=== PATIENT | female | born 1960 | race Caucasian/White ===

== ENCOUNTER 2016-04-26 18:50 | Emergency (ER) | payer OTHER ==
[~2016-04-26] VITALS: Ht 152.4 cm; Wt 77.2 kg
[~2016-04-26 18:50] MED LIST: MTF1000T PO; PANT40TA3 PO; ZOC20 PO
[2016-04-26 19:11] VITALS: Ht 152.4 cm; Wt 77.2 kg
[2016-04-26] MEDS ORDERED: SOD CHLORIDE 0.9% 1,000 ML IV STA ×2 (19:43→21:01)
[2016-04-26] MEDS ORDERED: MECLIZINE 12.5 MG TAB PO ONE (20:00)
--- NOTE | 2016-04-26 20:07 | RADRPT ---
PROCEDURE: CT Head without contrast. CLINICAL INDICATION: weakness, dizxiness TECHNIQUE: Continuous axial CT images were obtained from the base of skull to the vertex. No cont rast was administered. The calculated radiation dose measures 0818 mGy centimeters. The CTDI measure s 50 mGy COMPARISON: No prior studies are available for comparison. FINDINGS: The ventricles are symmetric and normal in size. There is no mass effect or midline shift. There i s no abnormal intra-axial or extra-axial fluid collection. There is no evidence of intracranial hem orrhage. There are no abnormal areas of increased or decreased attenuation in the brain parenchyma. The bony calvarium is intact. The orbital soft tissue contents are unremarkable. Paranasal sinuses appear clear IMPRESSION: No mass effect or acute intracranial bleed. Unremarkable CT brain. RPTAT: HBST .Jian Islas MD, MD Date Time Electronically viewed and signed by .Jian Islas MD, MD on 04/26/2016 20:06 .T/
[2016-04-26 20:18] LABS: BASOPHILS % 0.4 % (0.0-2.0); EOSINOPHILS # 0.2 10^3/ul (0.0-0.5); EOSINOPHILS % 2.5 % (0.0-7.0); HEMATOCRIT 41.4 % (37.0-47.0); HEMOGLOBIN 14.4 g/dl (12.0-16.0); LYMPHOCYTES # 2.9 10^3/ul (0.8-2.9); LYMPHOCYTES % 38.6 % (15.0-51.0); MEAN CORPUSCULAR HEMOGLOBIN 33.1 pg (29.0-33.0); MEAN CORPUSCULAR HGB CONC 34.8 g/dl (32.0-37.0); MEAN CORPUSCULAR VOLUME 95.3 fl (82.0-101.0); MEAN PLATELET VOLUME 8.5 fl (7.4-10.4); MONOCYTE # 0.4 10^3/ul (0.3-0.9); MONOCYTES % 5.7 % (0.0-11.0); NEUTROPHILS % 52.8 % (39.0-77.0); PLATELET COUNT 248 10^3/UL (140-440); RED BLOOD COUNT 4.35 10^6/ul (4.20-5.40); RED CELL DISTRIBUTION WIDTH 12.5 % (11.5-14.5); UNCORRECTED WBC 7.6 10^3/ul (4.8-10.8); WHITE BLOOD COUNT 7.6 10^3/ul (4.8-10.8)
[2016-04-26 20:23] LABS: CHLORIDE 101 mmol/L (97-110); CONDITION 1; POTASSIUM 4.1 mmol/L (3.5-5.1); SODIUM 140 mmol/L (135-144)
[2016-04-26 20:26] LABS: ANION GAP 16 (8-16); BLOOD UREA NITROGEN 13 mg/dl (7-20); CARBON DIOXIDE 27 mmol/L (21-31)
[2016-04-26 20:27] LABS: CALCIUM 9.4 mg/dl (8.4-10.2)
[2016-04-26 20:31] LABS: GLUCOSE 411 mg/dl (70-220)
[2016-04-26 20:32] LABS: INR 0.91; PROTIME 12.2 Sec (12.2-14.2)
[2016-04-26 20:33] LABS: PARTIAL THROMBOPLASTIN TIME 26.2 Sec (25.0-35.0)
--- NOTE | 2016-04-26 20:54 | RADRPT ---
PROCEDURE: XR Chest. CLINICAL INDICATION: Chest pain TECHNIQUE: PA and Lateral views of the chest were obtained. COMPARISON: 05/20/2015 FINDINGS: The cardiomediastinal silhouette is within normal limits of size . Chronic elevation right hemidiaph ragm. .The lungs are clear without pleural effusion or focal consolidation. No pneumothorax. The os seous structures and soft tissues are unremarkable. IMPRESSION: 1. No evidence for active cardiopulmonary disease. RPTAT:AAJJ Jacqui Mendez Physician Date Time Electronically viewed and signed by Physician Arthur on 04/26/2016 20:53 VÍCTOR/
[2016-04-26] MEDS ORDERED: ASPI-664 PO (20:56)
[2016-04-26] MEDS ORDERED: LORA0.5T PO (20:57)
[2016-04-26 21:05] LABS: TROPONIN-I < 0.012 ng/ml (0.00-0.12)
[2016-04-26 21:14] LABS: ALBUMIN 4.5 g/dl (3.3-4.9)
[2016-04-26 21:16] LABS: BILIRUBIN,INDIRECT 0.1 mg/dl (0-1.1); BILIRUBIN,TOTAL 0.1 mg/dl (0.2-1.3)
[2016-04-26 21:17] LABS: TOTAL PROTEIN 7.3 g/dl (6.1-8.1)
[2016-04-26] MEDS ORDERED: GLUCOSE GEL 15 GRAM TUBE BUCCAL PRN (21:30)
[2016-04-26] MEDS ORDERED: DEXTROSE 50% 50 ML SYRINGE IV PRN ×2 (21:30)
[2016-04-26] MEDS ORDERED: INSULIN REGULAR, HUMAN 100 UNIT/1 ML 3ML VIAL SC ONE (21:30)
[2016-04-26] MEDS ORDERED: GLUCAGON 1 MG INJ IM PRN (21:30)
[2016-04-26] MEDS ORDERED: GLUCOSE GEL 15 GRAM TUBE PO PRN ×2 (21:30)
--- NOTE | 2016-04-26 22:21 | ERD ---
ER Documentation Chief Complaint Date/Time DATE: 04/26/16 TIME: 22:18 Chief Complaint Dizziness, Came to ER for eval. With Co morbidity HPI This 55-year-old female presents to the emergency room for evaluation of dizziness. The patient states that she was seen by her primary care physician and was diagnosed with anemia. She was concerned because her hemoglobin was less than 10 she states. She denies any vomiting, or bleeding when going to the restroom. She states that she is feeling dizzy and describes her dizziness as a lightheaded sensation. She does say she is a diabetic who is on metformin , glyburide. The patient came to the ER today for evaluation of her symptoms. ROS All systems reviewed and are negative except as per history of present illness. Medications Home Meds Reported Medications Lorazepam* (Lorazepam*) 0.5 Mg Tablet, 0.5 MG PO HS Y for ANXIETY, TAB 04/26/16 Aspirin* (Aspirin* EC) 81 Mg Tablet., 81 MG PO DAILY, TAB 04/26/16 Simvastatin (Simvastatin) 20 Mg Tablet, 20 MG PO QHS, #30 TAB 05/06/15 Metformin* (Glucophage*) 1,000 Mg Tablet, 1000 MG PO BID, #60 TAB 05/06/15 Discontinued Scripts Pantoprazole* (Protonix*) 40 Mg Tablet., 40 MG PO BID for 30 Days, TAB Prov:LYSSA MCKINLEY MD 05/10/15 Allergies Allergies: Coded Allergies: No Known Drug Allergies (Verified Allergy, Unknown, 04/26/16) PMhx/Soc History of Surgery: No Anesthesia Reaction: No Hx Neurological Disorder: No Hx Respiratory Disorders: No Hx Cardiac Disorders: No Hx Psychiatric Problems: No Hx Miscellaneous Medical Probl: Yes (DM) Hx Alcohol Use: No Hx Substance Use: No Hx Tobacco Use: No Smoking Status: Current every day smoker Physical Exam Vitals Vital Signs Date Time Temp Pulse Resp B/P Pulse Ox O2 Delivery O2 Flow Rate FiO2 04/26/16 19:11 98.2 85 18 117/64 96 Physical Exam INITIAL VITAL SIGNS: Reviewed by me GENERAL: The patient is well developed and appropriate for usual state of health in no apparent distress HEENT: Pupils equal, round, and reactive to light. EOMI. There is no scleral icterus. NECK: C-spine is soft and supple, there is no meningismus. There is no cervical lymphadenopathy. LUNGS: Clear to auscultation bilaterally. There are no rales, wheezes or rhonchi. HEART: Regular rate and rhythm, no murmurs, clicks, rubs or gallops. ABDOMEN: Soft, non-tender, non-distended. There are bowel sounds in all four quadrants. No rebound or guarding. EXTREMITIES: There is no peripheral cyanosis or edema. No focal swelling or erythema. NEUROLOGICAL: The patient moves all four extremities with 5/5 strength. Cranial nerves II - XII are intact. Normal gait. Alert and oriented SKIN: There is no apparent rash or petechiae. HEME/LYMPHATIC: There is no evidence of excessive bruising or lymphedema. PSYCHIATRIC: The patient does not appear anxious or depressed. Result Diagram: 04/26/16200704/26/162007 Results 24 hrs Laboratory Tests Test 04/26/16 20:08 04/26/16 22:10 Activated Partial Thromboplast Time 26.2Sec Alanine Aminotransferase (ALT/SGPT) 43IU/L Albumin 4.5g/dl Alkaline Phosphatase 134IU/L Anion Gap 16 Aspartate Amino Transf (AST/SGOT) 39IU/L Basophils # 0.010^3/ul Basophils % 0.4% Blood Urea Nitrogen 13mg/dl Calcium Level 9.4mg/dl Carbon Dioxide Level 27mmol/L Chloride Level 101mmol/L Creatinine 0.70mg/dl Direct Bilirubin 0.00mg/dl Eosinophils # 0.210^3/ul Eosinophils % 2.5% Glucose Level 411mg/dl Hematocrit 41.4% Hemoglobin 14.4g/dl INR International Normalized Ratio 0.91 Indirect Bilirubin 0.1mg/dl Lymphocytes # 2.910^3/ul Lymphocytes % 38.6% Mean Corpuscular Hemoglobin 33.1pg Mean Corpuscular Hemoglobin Concent 34.8g/dl Mean Corpuscular Volume 95.3fl Mean Platelet Volume 8.5fl Monocytes # 0.410^3/ul Monocytes % 5.7% Neutrophils # 4.010^3/ul Neutrophils % 52.8% Nucleated Red Blood Cells # 0.010^3/ul Nucleated Red Blood Cells % 0.0/100WBC Platelet Count 18368^3/UL Potassium Level 4.1mmol/L Prothrombin Time 12.2Sec Prothrombin Time Ratio 1.0 Red Blood Count 4.3510^6/ul Red Cell Distribution Width 12.5% Sodium Level 140mmol/L Total Bilirubin 0.1mg/dl Total Protein 7.3g/dl Troponin I < 0.012ng/ml White Blood Count 7.610^3/ul Bedside Glucose 274mg/dL Current Medications Medications (Trade) Dose Ordered Sig/Kaleb Route PRN Reason Start Time Stop Time Status Last Admin Dose Admin Sodium Chloride (NS) 1,000 ml @ 1,000 mls/hr Q1H STAT IV 04/26/16 19:43 04/26/16 20:42 DC 04/26/16 20:28 Meclizine HCl (Antivert) 25 mg ONCE ONCE PO 04/26/16 20:00 04/26/16 20:01 DC 04/26/16 20:26 Insulin Human Regular 15 unit 15 unit ONCE ONCE SC 04/26/16 21:30 04/26/16 21:31 DC 04/26/16 21:20 Sodium Chloride (NS) 1,000 ml @ 1,000 mls/hr Q1H STAT IV 04/26/16 21:01 04/26/16 22:00 DC 04/26/16 21:56 Miscellaneous Information 1 ea NOTE XX 04/26/16 21:30 Glucose (Glutose) 15 gm Q15M PRN PO DECREASED GLUCOSE 04/26/16 21:30 Glucose (Glutose) 22.5 gm Q15M PRN PO DECREASED GLUCOSE 04/26/16 21:30 Dextrose (D50w Syringe) 25 ml Q15M PRN IV DECREASED GLUCOSE 04/26/16 21:30 Dextrose (D50w Syringe) 50 ml Q15M PRN IV DECREASED GLUCOSE 04/26/16 21:30 Glucagon (Glucagen) 1 mg Q15M PRN IM DECREASED GLUCOSE 04/26/16 21:30 Glucose (Glutose) 15 gm Q15M PRN BUCCAL DECREASED GLUCOSE 04/26/16 21:30 Procedures/MDM EKG: #1 Rate/Rhythm: [Normal Sinus Rhythm] QRS, ST, T-waves: [No changes consistent w/ acute ischemia] Impression: [No evidence of ischemia or arrhythmia] EKG: #2 Rate/Rhythm: [Normal Sinus Rhythm] QRS, ST, T-waves: [No changes consistent w/ acute ischemia] Impression: [No evidence of ischemia or arrhythmia] Chest X-ray 1V Interpreted by me: Soft Tissue: No acute abnormalities Bones: No acute abnormalities Mediastinum/Cardiac Silhouette/Lungs: [No acute abnormalities] This 55-year-old female presents to the emergency room for evaluation of dizziness, some general weakness, and possible low hemoglobin. I evaluated this patient, she was hemodynamically stable. Did not appear pale, and was in no acute distress. The patient did have lab work drawn and her hemoglobin came back normal however her blood sugar was 411. The patient was given 15 units of subcutaneous insulin was given now 1 L of fluids. I reevaluate her blood sugar and it was 211. She states she is feeling much better at this time. I advised her she is not anemic and her dizziness and general feeling was secondary to her uncontrolled diabetes. The patient verbalized understanding. She will be discharged home at this time. No signs of DKA at this time Departure Diagnosis: Primary Impression: Uncontrolled type 2 diabetes mellitus Additional Impression: Dizziness Condition: Stable ROHAN ESPARZA DO Apr 26, 2016 22:21
[2016-04-26 23:07] VITALS: BP 115/74; PULSE 63; RESP 18
== END 2016-04-26 23:18 | disposition home or self-care (01) ==
LOC: E/R 18:50
DX: E11.9 Type 2 diabetes mellitus without complications (principal); F17.210 Nicotine dependence, cigarettes, uncomplicated; R07.9 Chest pain, unspecified; Z79.82 Long term (current) use of aspirin; Z79.84 Long term (current) use of oral hypoglycemic drugs
CPT/HCPCS: 36415; 70450; 71010; 80048; 80076; 82962; 84484; 85025; 85610; 85730; 86850; 86900; 86901; 93005; 96360; 96361; 96372; J1815; J7030; Z7502; Z7610

== ENCOUNTER 2016-11-03 12:58 | Emergency (ER) | payer OTHER ==
[~2016-11-03] VITALS: Ht 165.1 cm; Wt 75.0 kg
[~2016-11-03 12:58] MED LIST changes: +ASPI-664 PO; +LORA0.5T PO; -PANT40TA3 PO; +SIMV20TA2 PO; -ZOC20 PO
[2016-11-03 13:03] VITALS: Ht 165.1 cm; Wt 75.0 kg
[2016-11-03] MEDS ORDERED: ALBUTEROL 0.083% (NEB) 2.5 MG/3 ML AMP NEB STA (14:44)
[2016-11-03] MEDS ORDERED: IPRATROPIUM (NEB) 0.5 MG/2.5 ML AMP NEB STA (14:44)
--- NOTE | 2016-11-03 15:26 | RADRPT ---
PROCEDURE: Chest x-ray CLINICAL INDICATION: Asthma exacerbation TECHNIQUE: Chest single view COMPARISON: 04/26/2016 FINDINGS: The heart is normal in size. The pulmonary vessels are normal in caliber. The lungs are clear. Th e costophrenic angles are sharp. The visualized bony thorax is unremarkable. IMPRESSION: No acute cardiopulmonary disease. No interval change RPTAT: HH .Abdulaziz Cook MD, Date Time Electronically viewed and signed by .Abdulaziz Cook MD, MD on 11/03/2016 15:25 .W/
--- NOTE | 2016-11-03 16:06 | ERD ---
ER Documentation Chief Complaint Date/Time DATE: 11/03/16 TIME: 16:03 Chief Complaint Complains of a cough with SOB x 3 days HPI This a 56-year-old female presents the emergency department today complaining of cough and shortness of breath for the past 3 days. States she also has nasal congestion and pain in her back from coughing As well as headache and some body aches. States she has not taken any medication. Denies any fevers or chills. States she does smoke cigarettes. Denies any prolonged travel, calf pain. ROS All systems reviewed and are negative except as per history of present illness. Medications Home Meds Active Scripts Albuterol Sulfate* (Proair HFA*) 8.5 Gm Hfa.aer.ad, 2 PUFF INH Q4, #1 INHALER Prov:PATRICIO DUVAL PA-C 11/03/16 Naproxen* (Naprosyn*) 500 Mg Tablet, 500 MG PO BID Y for PAIN AND/OR INFLAMMATION, #30 TAB Prov:PATRICIO DUVAL PA-C 11/03/16 Cetirizine Hcl* (Zyrtec*) 10 Mg Capsule, 10 MG PO DAILY, #10 TAB.CHEW Prov:PATRICIO DUVAL PA-C 11/03/16 Fluticasone Propionate (Flonase Allergy Relief) 9.9 Ml [place].susp, 2 SPRAY NASAL DAILY, #1 BOTTLE TO EACH NOSTRIL Prov:PATRICIO DUVAL PA-C 11/03/16 Azithromycin* (Zithromax*) 250 Mg Tablet, 250 MG PO .ANGELITA DIRECTED, #6 TAB TAKE 500 MG (2 TABS) THE FIRST DAY THEN 250 MG (1 TAB) DAYS 2-5 Prov:PATRICIO DUVAL PA-C 11/03/16 Reported Medications Lorazepam* (Lorazepam*) 0.5 Mg Tablet, 0.5 MG PO HS Y for ANXIETY, TAB 04/26/16 Aspirin* (Aspirin* EC) 81 Mg Tablet.dr, 81 MG PO DAILY, TAB 04/26/16 Simvastatin (Simvastatin) 20 Mg Tablet, 20 MG PO QHS, #30 TAB 05/06/15 Metformin* (Glucophage*) 1,000 Mg Tablet, 1000 MG PO BID, #60 TAB 05/06/15 Allergies Allergies: Coded Allergies: No Known Drug Allergies (Verified Allergy, Unknown, 04/26/16) PMhx/Soc History of Surgery: No Anesthesia Reaction: No Hx Neurological Disorder: No Hx Respiratory Disorders: No Hx Cardiac Disorders: No Hx Psychiatric Problems: No Hx Miscellaneous Medical Probl: Yes (DM, high cholesterol) Hx Alcohol Use: No Hx Substance Use: No Hx Tobacco Use: No Physical Exam Vitals Vital Signs Date Time Temp Pulse Resp B/P Pulse Ox O2 Delivery O2 Flow Rate FiO2 11/03/16 15:26 80 20 91 21 11/03/16 13:03 99.7 98 20 118/58 93 Physical Exam Const: obese, NAD Head: Atraumatic Eyes: Normal Conjunctiva ENT: Ears TMs normal. Nose no drainage. Throat erythema no exudate. Mild tenderness palpation frontal sinuses. Neck: Full range of motion..~ No meningismus. Resp: Wheezing right-sided lung isaac. Left-sided lung isaac clear. Cardio: Regular rate and rhythm, no murmurs Abd: Soft, non tender, non distended. Normal bowel sounds Skin: No petechiae or rashes Back: No midline or flank tenderness Ext: No cyanosis, or edema Neur: Awake and alert Psych: Normal Mood and Affect Results 24 hrs Current Medications Medications (Trade) Dose Ordered Sig/Kaleb Route PRN Reason Start Time Stop Time Status Last Admin Dose Admin Albuterol (Proventil 0.083% (Neb)) 5 mg ONCE STAT NEB 11/03/16 14:44 11/03/16 14:46 DC 11/03/16 15:25 Ipratropium Beeson (Atrovent 0.02% (Neb)) 0.5 mg ONCE STAT NEB 11/03/16 14:44 11/03/16 14:46 DC 11/03/16 15:25 Acetaminophen/ Hydrocodone Bitart ([place] (5/325)) 1 tab ONCE ONCE PO 11/03/16 16:30 11/03/16 16:31 Procedures/MDM This a 56-year-old female presents emergency department today complaining of cough and shortness of breath for the past 3 days. Patient also reports some sinus congestion. On physical exam patient has some wheezing or right-sided lung isaac. She is afebrile and otherwise well-appearing. She is not tachycardic. Her oxygen saturation is 93%. I did give patient a breathing treatment here in the emergency department and symptoms improved. I did ask patient about her diabetes and she indicated that she does not take her blood sugars very well controlled and therefore I declined to give her prednisone at this time. Patient's oxygen saturation improved to 95% after breathing treatment. Patient was counseled in greater than 3 minutes for smoking cessation. I did obtain a chest x-ray that shows no acute cardiopulmonary disease. Lungs are clear. Low suspicion for pneumonia, PE, abscess, pleural effusion, pneumothorax. Patient symptoms at this time is consistent with bronchitis and headache. Patient was given [place] for pain here she will be given a prescription for Naprosyn, Tylenol, azithromycin, and inhaler, Zyrtec and Flonase At this time the patient is stable for discharge and outpatient management. Patient should follow up with their PCP in the next 1-2 days. They may return to the emergency department sooner for any persistent or worsening of symptoms. Patient and son understood and agreed with the plan. Departure Diagnosis: Primary Impression: Cough Additional Impression: Shortness of breath Condition: PATRICIO Ruiz PA-C Nov 03, 2016 16:06
[2016-11-03] MEDS ORDERED: FLUT9.9S NASAL (16:10)
[2016-11-03] MEDS ORDERED: AZIT250T94 PO (16:10)
[2016-11-03] MEDS ORDERED: CETI10CA PO (16:11)
[2016-11-03] MEDS ORDERED: NAPR-260 PO (16:11)
[2016-11-03] MEDS ORDERED: ALBU8.5H3 INH (16:11)
[2016-11-03 16:30] VITALS: BP 122/64; PULSE 78; RESP 18; TEMP 98.1
[2016-11-03] MEDS ORDERED: HYDROCODONE/APAP (5/325) TAB PO ONE (16:30)
== END 2016-11-03 16:31 | disposition home or self-care (01) ==
LOC: FTE 12:58
DX: R05 Cough (principal); R06.02 Shortness of breath; F17.210 Nicotine dependence, cigarettes, uncomplicated; E11.9 Type 2 diabetes mellitus without complications; E66.9 Obesity, unspecified; Z68.27 Body mass index [BMI] 27.0-27.9, adult; Z79.82 Long term (current) use of aspirin; Z79.84 Long term (current) use of oral hypoglycemic drugs
CPT/HCPCS: 71010; 94664; Z7502; Z7610